=== PATIENT | female | born 2000 | race Hispanic/Latino ===

== ENCOUNTER 2022-01-31 04:38 | Emergency (ER) | payer OTHER, SELFPAY ==
[2022-01-31] MEDS ORDERED: KETOROLAC 30 MG/ML INJ ONE (06:00)
[2022-01-31] MEDS ORDERED: CEPHALEXIN 250 MG CAP ONE (06:00)
[2022-01-31] MEDS ORDERED: CEFAZOLIN SODIUM 1 GM/VIAL ONE (06:00)
[2022-01-31] MEDS ORDERED: NA CHLORIDE 0.9% 500 ML ONE (06:01)
[2022-01-31] MEDS ORDERED: NA CHLORIDE 0.9% 100 ML ONE (06:01)
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
[2022-01-31 06:56] VITALS: TEMP 98.3; O2SAT 100
[2022-01-31 07:09] VITALS: BP 110/68
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
== END 2022-01-31 06:45 | disposition home or self-care (01) ==
LOC: ER 04:38
DX: S01.512A Laceration without foreign body of oral cavity, initial encounter (principal); S02.5XXA Fracture of tooth (traumatic), initial encounter for closed fracture; M26.79 Other specified alveolar anomalies
CPT/HCPCS: 70450; 70486; 72125; 76377; 96374; 96375; 99284; J0690; J7040